=== PATIENT | male | born 1955 | race Caucasian/White ===

== ENCOUNTER 2021-10-02 19:28 | Inpatient (IN) | payer OTHER ==
[~2021-10-02] VITALS: Ht 162.6 cm; Wt 59.3 kg
[2021-10-02] MEDS ORDERED: ONDANSETRON 4MG INJ IV ONE (20:00)
[2021-10-02] MEDS ORDERED: PANTOPRAZOLE 40 MG/VIAL IVP ONE (20:00)
[2021-10-02] MEDS ORDERED: 0.9%NACL 1000ML 1,000 ML IV SCH (20:00)
[2021-10-02 20:19] LABS: BASOPHILS % (AUTO) 0.3 % (0.0-5.0); EOSINOPHILS % (AUTO) 0.3 % (0.0-8.0); LYMPHOCYTES % (AUTO) 8.4 % (21.0-51.0); MEAN CORPUSCULAR HEMOGLOBIN 28.8 pg (27.0-33.0); MEAN CORPUSCULAR HGB CONC 32.1 g/dL (32.0-36.0); MEAN CORPUSCULAR VOLUME 89.7 fL (79-99); MONOCYTES % (AUTO) 7.6 % (3.0-13.0); NEUTROPHILS % (AUTO) 82.9 % (40.0-77.0); PLATELET COUNT (AUTO) 260 K/uL (130-400); RED BLOOD CELL COUNT(AUTO) 3.68 MIL/uL (4.50-6.20); RED CELL DISTRIBUTION WIDTH 13.9 % (11.0-15.5); WHITE BLOOD COUNT (AUTO) 14.3 K/uL (4.8-10.8)
[2021-10-02 20:30] LABS: CREATININE 1.1 mg/dL (0.5-1.5); POTASSIUM 4.4 mmol/L (3.5-5.1)
[2021-10-02 20:37] LABS: ALBUMIN 2.1 g/dL (3.5-5.0); TOTAL PROTEIN, SERUM 5.6 g/dL (6.0-8.3)
[2021-10-02] MEDS ORDERED: IOHEXOL 350 MG/ML 100ML INFUS..BTL IV ONE (20:46)
[2021-10-02] MEDS ORDERED: ZOSYN 3.375GM +NS 50ML IV SCH (22:00)
[2021-10-02] MEDS ORDERED: VANCOMYCIN 1G VIAL IVPB ONE (22:00)
[2021-10-02] MEDS ORDERED: VANCOMYCIN 1G/250ML KIT 250 ML IV ONE (22:33)
[2021-10-02 23:00] LABS: CREATININE 1.1 mg/dL (0.5-1.5); POTASSIUM 4.3 mmol/L (3.5-5.1)
[2021-10-02] MEDS ORDERED: OCTREOTIDE ACETATE 100 MCG/ML AMP IV SCH (23:00)
[2021-10-02] MEDS ORDERED: LACTULOSE 20 GM/30 ML UDCUP PO ONE (23:00)
[2021-10-02] MEDS ORDERED: ACETAMINOPHEN WITH CODEINE 1 TAB TAB PO ONE (23:00)
[2021-10-02] MEDS ORDERED: ACETAMINOPHEN 325 MG TAB PO PRN (23:00)
[2021-10-02] MEDS ORDERED: ONDANSETRON 4MG INJ IV PRN (23:00)
[2021-10-02] MEDS ORDERED: MORPHINE 4 MG SYG IV PRN (23:00)
[2021-10-02] MEDS ORDERED: OCTREOTIDE ACETATE 500 MCG in 0.9%NACL 100ML 97.5 ML IV SCH (23:00)
[2021-10-02] MEDS ORDERED: CEFTRIAXONE 1G VIAL IV SCH (23:00)
[2021-10-02] MEDS: DOXYCYCLINE 100MG+NS 250ML 250 ML IV SCH (23:00)
[2021-10-02] MEDS ORDERED: LACTULOSE 20 GM/30 ML UDCUP PO PRN (23:00)
[2021-10-02] MEDS ORDERED: MORPHINE 2 MG SYG IV PRN (23:00)
[2021-10-02] MEDS: 0.9%NACL 1000ML 1,000 ML IV SCH (23:13)
[2021-10-02] MEDS: PANTOPRAZOLE 40MG INJ 80 MG in 0.9%NACL 100ML 100 ML IV SCH (23:23)
[2021-10-02] MEDS ORDERED: OCTREOTIDE ACETATE 200 MCG/ML 5 ML VIAL ONE (23:28)
[2021-10-03 00:32] VITALS: BP 101/79
[2021-10-03] MEDS: IPRATROPIUM/ALBUTEROL SULFATE 3 ML SOLUTION IH SCH ×3 (00:34→11:11)
[2021-10-03 03:42] LABS: BASOPHILS % (AUTO) 0.3 % (0.0-5.0); HEMATOCRIT 26.2 % (42-54); LYMPHOCYTES % (AUTO) 13.5 % (21.0-51.0); MEAN CORPUSCULAR HEMOGLOBIN 28.7 pg (27.0-33.0); MEAN CORPUSCULAR HGB CONC 32.4 g/dL (32.0-36.0); MEAN CORPUSCULAR VOLUME 88.5 fL (79-99); MONOCYTES % (AUTO) 10.2 % (3.0-13.0); NEUTROPHILS % (AUTO) 74.6 % (40.0-77.0); PLATELET COUNT (AUTO) 204 K/uL (130-400); RED BLOOD CELL COUNT(AUTO) 2.96 MIL/uL (4.50-6.20); WHITE BLOOD COUNT (AUTO) 9.3 K/uL (4.8-10.8)
[2021-10-03 03:54] LABS: INR 1.03 (0.85-1.15); PROTHROMBIN TIME 11.2 SEC (9.6-11.6)
[2021-10-03 03:56] LABS: MAGNESIUM 1.7 mg/dL (1.80-2.40); PARTIAL THROMBOPLASTIN TIME 22.4 SEC (26.3-35.5); PHOSPHORUS 2.3 mg/dL (2.5-4.9)
[2021-10-03 04:00] VITALS: BP 101/65
[2021-10-03 04:02] LABS: B-TYPE NATRIURETIC PEPTIDE 25 pg/mL (0-100)
[2021-10-03 08:00] VITALS: BP 117/64
[2021-10-03] MEDS ORDERED: DEXTROSE 50%-WATER 50 ML DISP.SYRIN IV PRN (08:30)
[2021-10-03] MEDS ORDERED: GLUCAGON 1MG KIT 1 MG ML IM PRN (08:30)
[2021-10-03] MEDS ORDERED: MAGNESIUM 2GM PREMIX 50ML 50 ML IV PRN (08:30)
[2021-10-03] MEDS ORDERED: POTASSIUM CHLORIDE 20MEQ/100ML 100 ML IV PRN ×2 (08:30)
[2021-10-03] MEDS ORDERED: POTASSIUM CHLORIDE 10% ELIXIR 20 MEQ/15 ML UDCUP PO PRN (08:30)
[2021-10-03] MEDS ORDERED: ZOSYN 3.375GM +NS 50ML IV SCH (08:30)
[2021-10-03] MEDS ORDERED: LIDOCAINE HCL-MPF 1% 2ML VIAL IV PRN ×2 (08:30)
[2021-10-03 08:44] LABS: ABG HCO3 22.8 mmol/L (21.0-28.0); ABG OXYGEN SATURATION 95.2 % (95.0-99.0); ABG PCO2 32 mmHg (35-48)
[2021-10-03 09:35] LABS: HEMATOCRIT 25.1 % (42-54)
[2021-10-03] MEDS: PANTOPRAZOLE 40MG INJ 80 MG in 0.9%NACL 100ML 100 ML IV SCH ×2 (10:03→21:43)
[2021-10-03 12:00] VITALS: BP 104/55
[2021-10-03] MEDS: DOXYCYCLINE 100MG+NS 250ML 250 ML IV SCH ×2 (12:12→23:22)
[2021-10-03] MEDS: ZOSYN 3.375GM +NS 50ML IV SCH ×2 (12:12→20:51)
[2021-10-03] MEDS ORDERED: MIDAZOLAM HCL 1 MG/ML 2ML VIAL ONE (15:14)
[2021-10-03] MEDS ORDERED: FENTANYL CITRATE PF 50 MCG/1 ML 2ML VIAL ONE (15:14)
[2021-10-03 15:50] LABS: HEMATOCRIT 25.4 % (42-54)
[2021-10-03 16:10] VITALS: BP 108/66
[2021-10-03] MEDS: 0.9%NACL 1000ML 1,000 ML IV SCH (16:48)
[2021-10-03] MEDS: IPRATROPIUM 0.5 MG/2.5 ML INH IH SCH (18:54)
[2021-10-03 19:50] VITALS: BP 90/50
[2021-10-04] VITALS (21 sets, daily range): BP systolic 90–125; BP diastolic 48–72
[2021-10-04] MEDS: IPRATROPIUM 0.5 MG/2.5 ML INH IH SCH ×5 (01:06→23:18)
[2021-10-04 03:41] LABS: HEMATOCRIT 23.5 % (42-54); MEAN CORPUSCULAR HEMOGLOBIN 28.7 pg (27.0-33.0); MEAN CORPUSCULAR HGB CONC 31.9 g/dL (32.0-36.0); RED BLOOD CELL COUNT(AUTO) 2.61 MIL/uL (4.50-6.20); RED CELL DISTRIBUTION WIDTH 14.3 % (11.0-15.5); WHITE BLOOD COUNT (AUTO) 9.2 K/uL (4.8-10.8)
[2021-10-04 03:52] LABS: CREATININE 1.3 mg/dL (0.5-1.5); POTASSIUM 4.1 mmol/L (3.5-5.1)
[2021-10-04] MEDS: ZOSYN 3.375GM +NS 50ML IV SCH ×3 (05:05→21:21)
[2021-10-04 10:14] LABS: HEMATOCRIT 23.9 % (42-54)
[2021-10-04] MEDS ORDERED: COMPOUND IV REFRIGERATED 1 EACH IVSOLN MISC PRN (12:00)
[2021-10-04] MEDS: DOXYCYCLINE 100MG+NS 250ML 250 ML IV SCH ×2 (12:13→23:58)
[2021-10-04] MEDS ORDERED: LIDOCAINE HCL-MPF 2% 10ML AMP IJ ONE (12:49)
[2021-10-04] MEDS ORDERED: PROPOFOL 10 MG/ML 20ML VIAL IV ONE ×2 (12:49→12:56)
[2021-10-04] MEDS ORDERED: EPINEPHRINE PF 1MG AMP ONE (12:57)
[2021-10-04] MEDS ORDERED: IPRATROPIUM/ALBUTEROL SULFATE 3 ML SOLUTION IH STA (13:23)
[2021-10-04] MEDS ORDERED: IPRATROPIUM/ALBUTEROL SULFATE 3 ML SOLUTION IH ONE (13:30)
[2021-10-04 17:03] LABS: HEMATOCRIT 24.3 % (42-54)
[2021-10-04 22:50] LABS: HEMATOCRIT 23.7 % (42-54)
[2021-10-05 04:05] LABS: HEMATOCRIT 22.3 % (42-54); MEAN CORPUSCULAR HEMOGLOBIN 28.4 pg (27.0-33.0); MEAN CORPUSCULAR HGB CONC 31.8 g/dL (32.0-36.0); MEAN CORPUSCULAR VOLUME 89.2 fL (79-99); RED BLOOD CELL COUNT(AUTO) 2.5 MIL/uL (4.50-6.20); RED CELL DISTRIBUTION WIDTH 14.2 % (11.0-15.5); WHITE BLOOD COUNT (AUTO) 7.4 K/uL (4.8-10.8)
[2021-10-05 04:09] VITALS: BP 137/58
[2021-10-05 04:14] LABS: CREATININE 1.1 mg/dL (0.5-1.5); POTASSIUM 3.9 mmol/L (3.5-5.1)
[2021-10-05] MEDS: ZOSYN 3.375GM +NS 50ML IV SCH ×3 (04:36→21:28)
[2021-10-05] MEDS: IPRATROPIUM 0.5 MG/2.5 ML INH IH SCH ×4 (06:44→23:20)
[2021-10-05 08:00] VITALS: BP_SYST 147; BP_SYST 94; BP_DIAS 51; BP_DIAS 79
[2021-10-05] MEDS ORDERED: PANTOPRAZOLE 40 MG/VIAL IVP ONE (09:00)
[2021-10-05] MEDS ORDERED: PRED10TA3 PO (09:21)
[2021-10-05] MEDS: PANTOPRAZOLE 40MG INJ 80 MG in 0.9%NACL 100ML 100 ML IV SCH ×2 (09:32→21:30)
[2021-10-05] MEDS ORDERED: IRON SUCROSE COMPLEX 100 MG in 0.9%NACL 50ML 50 ML IV SCH (10:00)
[2021-10-05] MEDS: IRON SUCROSE COMPLEX 100 MG/5 ML VIAL IVP SCH (10:19)
[2021-10-05] MEDS: DOXYCYCLINE 100MG+NS 250ML 250 ML IV SCH ×2 (10:20→23:30)
[2021-10-05 12:00] VITALS: BP 95/60
[2021-10-05 16:00] VITALS: BP 96/53
[2021-10-05 18:54] VITALS: BP 99/70
[2021-10-05 23:38] VITALS: BP 114/59
[2021-10-06 03:56] VITALS: BP 133/77
[2021-10-06 04:37] LABS: MEAN CORPUSCULAR HEMOGLOBIN 28.7 pg (27.0-33.0); MEAN CORPUSCULAR HGB CONC 32.1 g/dL (32.0-36.0); MEAN CORPUSCULAR VOLUME 89.6 fL (79-99); RED BLOOD CELL COUNT(AUTO) 2.68 MIL/uL (4.50-6.20); RED CELL DISTRIBUTION WIDTH 14.3 % (11.0-15.5); WHITE BLOOD COUNT (AUTO) 7.9 K/uL (4.8-10.8)
[2021-10-06] MEDS: ZOSYN 3.375GM +NS 50ML IV SCH ×3 (04:44→20:21)
[2021-10-06 05:04] LABS: CREATININE 1.2 mg/dL (0.5-1.5); POTASSIUM 3.5 mmol/L (3.5-5.1)
[2021-10-06] MEDS: IPRATROPIUM 0.5 MG/2.5 ML INH IH SCH ×4 (07:09→23:15)
[2021-10-06 08:00] VITALS: BP 91/57
[2021-10-06] MEDS: IRON SUCROSE COMPLEX 100 MG/5 ML VIAL IVP SCH (08:26)
[2021-10-06] MEDS: PANTOPRAZOLE 40MG INJ 80 MG in 0.9%NACL 100ML 100 ML IV SCH ×2 (08:37→20:00)
[2021-10-06] MEDS: DOXYCYCLINE 100MG+NS 250ML 250 ML IV SCH ×2 (11:29→23:37)
[2021-10-06 11:41] VITALS: BP 113/63
[2021-10-06 16:00] VITALS: BP 91/55
[2021-10-06 20:28] VITALS: BP 105/57
[2021-10-06 23:18] VITALS: BP 114/60
[2021-10-06 23:31] LABS: APPEARANCE,URINE CLEAR (CLEAR); BILIRUBIN,URINE NEGATIVE (NEGATIVE); COLOR,URINE YELLOW (YELLOW); GLUCOSE, URINE (UA) NEGATIVE (NEGATIVE); KETONES,URINE NEGATIVE (NEGATIVE); LEUKOCYTE ESTERASE ,URINE NEGATIVE (NEGATIVE); NITRATE,URINE NEGATIVE (NEGATIVE); OCCULT BLOOD,URINE NEGATIVE (NEGATIVE); PH,URINE 5.5 (5.0-8.0); PROTEIN,URINE NEGATIVE (NEGATIVE); UROBILINOGEN,URINE 0.2 mg/dL (0.2-1.0)
[2021-10-07 03:00] VITALS: BP 122/62
[2021-10-07 03:50] LABS: BASOPHILS % (AUTO) 0.6 % (0.0-5.0); EOSINOPHILS % (AUTO) 8.8 % (0.0-8.0); HEMATOCRIT 24.3 % (42-54); LYMPHOCYTES % (AUTO) 11.5 % (21.0-51.0); MEAN CORPUSCULAR HEMOGLOBIN 28.8 pg (27.0-33.0); MEAN CORPUSCULAR HGB CONC 32.1 g/dL (32.0-36.0); MEAN CORPUSCULAR VOLUME 89.7 fL (79-99); MONOCYTES % (AUTO) 10.5 % (3.0-13.0); NEUTROPHILS % (AUTO) 68.1 % (40.0-77.0); PLATELET COUNT (AUTO) 239 K/uL (130-400); RED BLOOD CELL COUNT(AUTO) 2.71 MIL/uL (4.50-6.20); RED CELL DISTRIBUTION WIDTH 14.8 % (11.0-15.5); WHITE BLOOD COUNT (AUTO) 8.6 K/uL (4.8-10.8)
[2021-10-07 04:08] LABS: CREATININE 1.1 mg/dL (0.5-1.5); POTASSIUM 3.2 mmol/L (3.5-5.1)
[2021-10-07] MEDS: ZOSYN 3.375GM +NS 50ML IV SCH ×2 (04:53→15:35)
[2021-10-07] MEDS: KCL 20 MEQ ERTAB PO PRN ×2 (05:38→09:29)
[2021-10-07] MEDS: PANTOPRAZOLE 40MG INJ 80 MG in 0.9%NACL 100ML 100 ML IV SCH ×2 (06:13→17:00)
[2021-10-07] MEDS: IPRATROPIUM 0.5 MG/2.5 ML INH IH SCH ×2 (06:56→11:30)
[2021-10-07 07:36] VITALS: BP 103/58
[2021-10-07] MEDS ORDERED: FLUCONAZOLE 200 MG/NS 100 ML 100 ML IV SCH (09:00)
[2021-10-07] MEDS: IRON SUCROSE COMPLEX 100 MG/5 ML VIAL IVP SCH (09:29)
[2021-10-07 12:08] VITALS: BP 112/60
[2021-10-07] MEDS: DOXYCYCLINE 100MG+NS 250ML 250 ML IV SCH (12:10)
[2021-10-07 16:35] VITALS: BP 124/60
== END 2021-10-07 18:35 | disposition short-term general hospital (02) | DRG 377 ==
LOC: EDH 19:28 → EDHIP 19:29 → 2DH 23:07
PROVIDERS: ADMIT Hospitalist; ATTEND Hospitalist
PROC: 0W3P8ZZ Control Bleeding in Gastrointestinal Tract, Via Natural or Artificial Opening Endoscopic (ICD-10-PCS; principal; 2021-10-04)
DX: K25.4 Chronic or unspecified gastric ulcer with hemorrhage (principal); J69.0 Pneumonitis due to inhalation of food and vomit; D62 Acute posthemorrhagic anemia; K31.1 Adult hypertrophic pyloric stenosis; N13.30 Unspecified hydronephrosis; K59.00 Constipation, unspecified; Z90.49 Acquired absence of other specified parts of digestive tract; F17.210 Nicotine dependence, cigarettes, uncomplicated; Z87.01 Personal history of pneumonia (recurrent); K76.89 Other specified diseases of liver
CPT/HCPCS: 36415; 36600; 43239; 43255; 71045; 71270; 74177; 76705; 80048; 80053; 81003; 82270; 82803; 83605; 83735; 83880; 84100; 84153; 84484; 85014; 85018; 85025; 85027; 85610; 85730; 86701; 86850; 86900; 86901; 87040; 87071; 87205; 87390; 87635; 87804; 93005; 94640; 94664; 99291; C9113; C9803; G0378; J0171; J0696; J1450; J1756; J2250; J2354; J2405; J2543; J2704; J3010; J3370; J3475; J3490; J7030; Q9967